=== PATIENT | female | born 1935 | race Caucasian/White ===

== ENCOUNTER 2025-01-15 14:29 | Emergency (ER) | payer MEDICARE, OTHER, SELFPAY ==
[2025-01-15] VITALS (10 sets, daily range): BP systolic 162–203; BP diastolic 71–100; PULSE 82–113; RESP 15–22; TEMP 36.6; O2SAT 95–100
--- NOTE | 2025-01-15 15:21 | DI.CT.S_ITS ---
PROCEDURE: CT ABDOMEN PELVIS WO CON INDICATIONS: right hip pain TECHNIQUE: CT of the abdomen and pelvis was obtained without intravenous contrast. Coronal and sagittal reformats were performed. For radiation dose reduction, the following was used: automated exposure control, adjustment of mA and/or kV according to patient size. COMPARISON: [place], [place], PET NECK TO MID THIGH, 04/22/2022, 11:06. FINDINGS: Image quality: Diagnostic. Lower Chest: No significant findings. ABDOMEN: Liver: No contour-deforming mass. Well-circumscribed hypodensities are seen scattered in liver parenchyma and measures fluid density unchanged from previous PET-CT scan and likely represent hepatic cysts. Gallbladder: No radiopaque gallstones or wall thickening. Biliary ducts: No biliary dilation. Pancreas: No ductal dilation. Spleen: Size is within normal limits. Adrenal Glands: No adrenal nodules. Kidneys and Ureters: No hydronephrosis. No contour-deforming mass. Stomach and Bowel: Normal colonic caliber, without significant wall thickening. No abscess collection. Huhg-[id number] fecal stasis in the colon is seen. Peritoneum: No abnormal intraperitoneal fluid. No free air. Ventral Wall: No significant hernia. Abdominal Nodes: No gross retroperitoneal or mesenteric adenopathy by size criteria. Vessels: Aorta and inferior vena cava are normal in size. PELVIS: Pelvic Organs: Unremarkable. Bladder: Unremarkable. Pelvic Nodes: No gross enlarged lymph nodes. Miscellaneous: No inguinal hernias are seen. Bones: No aggressive osseous abnormality. Osteoarthritic changes throughout bony pelvis. No evidence of avascular necrosis of femoral head. 6 mm anterolisthesis of L4 on L5 is seen. No acute vertebral body compression fracture. Spondylitic changes are noted throughout lower thoracic and lumbar spine. IMPRESSION: 1. No aggressive appearing bony lesions. No acute pelvic fracture or dislocation. No acute right hip fracture. 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 No evidence of avascular necrosis of femoral head. Grade 1 anterolisthesis of L4 on L5. Spondylitic changes throughout lower thoracic and lumbar spine. No acute vertebral body compression fracture. 2. No acute inflammatory process is seen in abdomen or pelvis. No gross abnormally enlarged lymph nodes are seen in abdomen or pelvis. Dictated by: Abdulkadir Rodney M.D. on 01/15/2025 at 16:10 Approved by: Abdulkadir Rodney M.D. on 01/15/2025 at 16:28
--- NOTE | 2025-01-15 15:21 | EKG_ITS ---
[address] [address] Test Date: 2025-01-15 Pat Name: Mali Jarquin Department: Room: Gender: Female Floor Coverer: KAITY : 1935 Requested By: Order Number: [id number] Reading MD: Deyvi George Measurements Intervals [place] Rate: 107 P: 69 DE: 144 QRS: -78 QRSD: 122 T: 9 QT: 362 QTc: 483 Interpretive Statements Sinus tachycardia Right bundle branch block Left anterior fascicular block Bifascicular block Minimal voltage criteria for LVH, may be normal variant ( R in aVL ) Septal infarct , age undetermined Possible Lateral infarct , age undetermined Electronically Signed On 01-24-2025 13:51:08 PDT by Deyvi George
[2025-01-15 15:49] LABS: Add Manual Diff / Slide Review NO; Hematocrit 41.8 % (36-46); Hemoglobin 14.2 g/dL (12.0-16.0); Lymphocytes Absolute Auto 700 /uL (1100-4500); Mean Corpuscular HGB Conc 34.1 % (30-36); Mean Corpuscular Hemoglobin 29.2 PG (26-34); Mean Corpuscular Volume 85.7 fL (80-100); Platelet Count 198 X10^3/uL (150-400)
[2025-01-15 16:00] LABS: Alanine Aminotransferase 27 IU/L (<35); Albumin 4.7 g/dL (3.5-5.0); Albumin Globulin Ratio 1.4 (1.0-2.8); Alkaline Phosphatase 71 U/L (38-126); Blood Urea Nitrogen 12 mg/dL (7-17); Calcium 9.7 mg/dL (8.4-10.2); Carbon Dioxide 30 mmol/L (22-32); Chloride 103 mmol/L (98-107); Estimated Glomerular Filt Rate > 60 mL/min (>60); Globulin 3.4 g/dL (1.7-4.1); Glucose 158 mg/dL (70-99); HEMOLYSIS < 15 (0-50); Potassium 4.0 mmol/L (3.4-5.1); Sodium 139 mmol/L (137-145); Total Protein 8.1 g/dL (6.3-8.2)
--- NOTE | 2025-01-15 18:17 | ED_ITS ---
HPI - Back Pain/Injury <Ottoniel Newell MD - Last Filed: 01/21/25 18:42> General Chief Complaint: Back Pain/Injury Stated Complaint: Right hip pain Time Seen by Provider: 01/15/25 17:48 History of Present Illness HPI Narrative: This is an 89-year-old female with a history of an abdominal sarcoma here with 1 month of right hip and right leg pain. Onset was atraumatic. Has not been having fevers or problems with bowel or bladder function. Has tried Tylenol or ibuprofen but is not taking either regularly. Does not have saddle anesthesia. Has had an urgent care visit and a couple of chiropractor visits related to this. Patient is concerned that this may be related to her sarcoma. She sees Oncology and is taking an oral chemotherapeutic. Related Data Previous Rx's ?Medication ?Instructions ?Recorded oxycodone-acetaminophen 5 mg-325 1 tab PO Q6H PRN pain #20 tabs 01/15/25 mg tablet (Percocet) Allergies Allergy/AdvReac Type Severity Reaction Status Date / Time No Known Drug Allergies Allergy Verified 01/15/25 14:59 Patient History <Ottoniel Newell MD - Last Filed: 01/21/25 18:42> Smoking Status: Never smoker Exam <Ottoniel Newell MD - Last Filed: 01/21/25 18:42> Initial Vital Signs Initial Vital Signs: Vital Signs Temperature 98 F 01/15/25 14:55 Pulse Rate 113 H 01/15/25 14:55 Respiratory Rate 17 01/15/25 14:55 Blood Pressure 191/85 H 01/15/25 14:55 Pulse Oximetry 98 01/15/25 14:55 Oxygen Delivery Method Room Air 01/15/25 14:55 vital signs are reviewed Const General: cooperative and No acute distress HENMT Head: normocephalic and atraumatic Face and sinus: face symmetric Mouth: moist mucous membranes Eyes Pupils: PERRL EOM: EOM intact bilaterally Neck Neck: normal visual inspection, supple and No JVD Chest Chest: normal inspection of the chest Resp Effort & Inspection: normal respiratory effort and able to speak in complete sentences Cardio Rate: regular rate Rhythm: regular rhythm Other: Normal heart rate GI Inspection: normal to inspection Palpation: soft Auscultation: normal bowel sounds Other: Bladder is not distended Other: Normal perineal sensation and sphincter tone. Stool is guaiac negative Back/Spine/Pelvis Back: normal to inspection Other: No tenderness or step-off in the spine Skin General: no rashes or lesions noted and warm Neuro General: patient alert, patient oriented x3 and moves all extremities Speech: speech normal Other: Decreased light touch sensation along the right lateral thigh. Motor is intact in the lower extremities, sensation is intact otherwise. Extrem General: full ROM (Tolerates passive range of motion of the right hip. Negative straight leg ) Psych Appearance: grossly normal <Primo Albarran DO - Last Filed: 01/15/25 22:39> Initial Vital Signs Initial Vital Signs: Vital Signs Temperature 98 F 01/15/25 14:55 Pulse Rate 113 H 01/15/25 14:55 Respiratory Rate 17 01/15/25 14:55 Blood Pressure 191/85 H 01/15/25 14:55 Pulse Oximetry 98 01/15/25 14:55 Oxygen Delivery Method Room Air 01/15/25 14:55 Course <Ottoniel Newell MD - Last Filed: 01/21/25 18:42> Orders Ordered: Discontinued Medications Ketorolac Tromethamine (Ketorolac 30 Mg/Ml Vial) 15 mg IM NOW ONE Stop: 01/15/25 18:30 Last Admin: 01/15/25 18:59 Dose: 15 mg Documented By: Lidocaine HCl (Lidocaine 2% Inj Mdv 20ml) 10 ml INJ INTRA-OP ONE Stop: 01/15/25 21:47 Last Admin: 01/15/25 21:57 Dose: 10 ml Documented By: LEN Oxycodone HCl (Oxycodone Ir 5 Mg Tablet) 5 mg PO NOW ONE Stop: 01/15/25 19:12 Last Admin: 01/15/25 19:17 Dose: 5 mg Documented By: Triamcinolone (Triamcinolone 40 Mg/Ml Vial) 20 mg INJ NOW ONE Stop: 01/15/25 21:47 Last Admin: 01/15/25 22:08 Dose: Not Given Documented By: LEN Triamcinolone (Triamcinolone 40 Mg/Ml Vial) 40 mg INJ NOW ONE Stop: 01/15/25 21:51 Last Admin: 01/15/25 21:58 Dose: 40 mg Documented By: LEN Reevaluation(s) Reevaluation #1: Nursing staff reported that the patient had greater than 400 cc on her bladder scan. She was subsequently able to void spontaneously. Unfortunately contaminated her urine with stool. Vital Signs Vital signs: Vital Signs - 8 hr 01/15/25 14:55 01/15/25 15:41 01/15/25 17:30 Temperature 98 F Pulse Rate 113 H 108 H 99 H Respiratory Rate 17 18 Blood Pressure 191/85 H 168/71 H Pulse Oximetry 98 95 97 Oxygen Delivery Method Room Air Room Air 01/15/25 17:30 01/15/25 18:00 01/15/25 18:30 Temperature Pulse Rate 95 H 82 95 H Respiratory Rate 22 Blood Pressure 196/89 H Pulse Oximetry 98 96 98 Oxygen Delivery Method Room Air 01/15/25 18:49 01/15/25 18:49 01/15/25 21:27 Temperature Pulse Rate 104 H 92 H Respiratory Rate 15 Blood Pressure 203/100 H 162/85 H Pulse Oximetry 100 96 Oxygen Delivery Method <Primo Albarran, DO - Last Filed: 01/15/25 22:39> Orders Ordered: Discontinued Medications Ketorolac Tromethamine (Ketorolac 30 Mg/Ml Vial) 15 mg IM NOW ONE Stop: 01/15/25 18:30 Last Admin: 01/15/25 18:59 Dose: 15 mg Documented By: Lidocaine HCl (Lidocaine 2% Inj Mdv 20ml) 10 ml INJ INTRA-OP ONE Stop: 01/15/25 21:47 Last Admin: 01/15/25 21:57 Dose: 10 ml Documented By: LEN Oxycodone HCl (Oxycodone Ir 5 Mg Tablet) 5 mg PO NOW ONE Stop: 01/15/25 19:12 Last Admin: 01/15/25 19:17 Dose: 5 mg Documented By: Triamcinolone (Triamcinolone 40 Mg/Ml Vial) 20 mg INJ NOW ONE Stop: 01/15/25 21:47 Last Admin: 01/15/25 22:08 Dose: Not Given Documented By: LEN Triamcinolone (Triamcinolone 40 Mg/Ml Vial) 40 mg INJ NOW ONE Stop: 01/15/25 21:51 Last Admin: 01/15/25 21:58 Dose: 40 mg Documented By: LEN Vital Signs Vital signs: Vital Signs - 8 hr 01/15/25 14:55 01/15/25 15:41 01/15/25 17:30 Temperature 98 F Pulse Rate 113 H 108 H 99 H Respiratory Rate 17 18 Blood Pressure 191/85 H 168/71 H Pulse Oximetry 98 95 97 Oxygen Delivery Method Room Air Room Air 01/15/25 17:30 01/15/25 18:00 01/15/25 18:30 Temperature Pulse Rate 95 H 82 95 H Respiratory Rate 22 Blood Pressure 196/89 H Pulse Oximetry 98 96 98 Oxygen Delivery Method Room Air 01/15/25 18:49 01/15/25 18:49 01/15/25 21:27 Temperature Pulse Rate 104 H 92 H Respiratory Rate 15 Blood Pressure 203/100 H 162/85 H Pulse Oximetry 100 96 Oxygen Delivery Method MDM - Back Pain/Injury <Ottoniel Newell MD - Last Filed: 01/21/25 18:42> Lab Data Lab results narrative: CBC with diff and CMP are unremarkable with the exception of an elevated glucose at 1:58 a.m. 01/15/25 15:30 01/15/25 15:30 Labs: Lab Results 01/15/25 Range/Units 15:30 WBC 4.1 L (4.5-11.0) X10^3/uL RBC 4.87 (4.0-5.2) X10^6/uL Hgb 14.2 (12.0-16.0) g/dL Hct 41.8 (36-46) % MCV 85.7 (80-100) fL MCH 29.2 (26-34) PG MCHC 34.1 (30-36) % RDW 15.7 H (11.6-14.8) % Plt Count 198 (150-400) X10^3/uL Neut % (Auto) 68.7 (50-75) % Lymph % (Auto) 16.9 L (25-40) % [place] % (Auto) 12.0 (3-14) % Eos % (Auto) 1.5 L (2-4) % Baso % (Auto) 0.9 (0-2) % Neut # (Auto) 2800 (4082-9133) /uL Lymph # (Auto) 700 L (9485-0858) /uL [place] # (Auto) 500 (0-900) /uL Eos # (Auto) 100 (0-450) /uL Baso # (Auto) 0 (0-100) /uL Sodium 139 (137-145) mmol/L Potassium 4.0 (3.4-5.1) mmol/L Chloride 103 (98-107) mmol/L Carbon Dioxide 30 (22-32) mmol/L BUN 12 (7-17) mg/dL Creatinine 0.68 (0.52-1.04) mg/dL Estimated GFR > 60 (>60) mL/min BUN/Creatinine Ratio 17.6 (6-22) Glucose 158 H (70-99) mg/dL Calcium 9.7 (8.4-10.2) mg/dL Total Bilirubin 0.7 (0.2-1.3) mg/dL AST 45 H (14-36) IU/L ALT 27 (<35) IU/L Alkaline Phosphatase 71 (38-126) U/L Total Protein 8.1 (6.3-8.2) g/dL Albumin 4.7 (3.5-5.0) g/dL Globulin 3.4 (1.7-4.1) g/dL Albumin/Globulin Ratio 1.4 (1.0-2.8) Imaging Data CT scan - abdomen/pelvis: Radiologist's Impression: [place] [address] CT Scan Report Signed Patient: Mali Jarquin MR#: [id number] : 1935 Acct:[id number] Age/Sex: 89 / F Date of Service: 01/15/25 Loc: ED Accession Number: [id number] Procedure: CT abdomen pelvis wo con Ordering Provider: Luis Daniel MD PROCEDURE: CT ABDOMEN PELVIS WO CON INDICATIONS: right hip pain TECHNIQUE: CT of the abdomen and pelvis was obtained without intravenous contrast. Coronal and sagittal reformats were performed. For radiation dose reduction, the following was used: automated exposure control, adjustment of mA and/or kV according to patient size. COMPARISON: [place], [place], PET NECK TO MID THIGH, 04/22/2022, 11:06. FINDINGS: Image quality: Diagnostic. Lower Chest: No significant findings. ABDOMEN: Liver: No contour-deforming mass. Well-circumscribed hypodensities are seen scattered in liver parenchyma and measures fluid density unchanged from previous PET-CT scan and likely represent hepatic cysts. Gallbladder: No radiopaque gallstones or wall thickening. Biliary ducts: No biliary dilation. Pancreas: No ductal dilation. Spleen: Size is within normal limits. Adrenal Glands: No adrenal nodules. Kidneys and Ureters: No hydronephrosis. No contour-deforming mass. Stomach and Bowel: Normal colonic caliber, without significant wall thickening. No abscess collection. Toaz-zk-qhsrunlv fecal stasis in the colon is seen. Peritoneum: No abnormal intraperitoneal fluid. No free air. Ventral Wall: No significant hernia. Abdominal Nodes: No gross retroperitoneal or mesenteric adenopathy by size criteria. Vessels: Aorta and inferior vena cava are normal in size. PELVIS: Pelvic Organs: Unremarkable. Bladder: Unremarkable. Pelvic Nodes: No gross enlarged lymph nodes. Miscellaneous: No inguinal hernias are seen. Bones: No aggressive osseous abnormality. Osteoarthritic changes throughout bony pelvis. No evidence of avascular necrosis of femoral head. 6 mm anterolisthesis of L4 on L5 is seen. No acute vertebral body compression fracture. Spondylitic changes are noted throughout lower thoracic and lumbar spine. IMPRESSION: 1. No aggressive appearing bony lesions. No acute pelvic fracture or dislocation. No acute right hip fracture. 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 No evidence of avascular necrosis of femoral head. Grade 1 anterolisthesis of L4 on L5. Spondylitic changes throughout lower thoracic and lumbar spine. No acute vertebral body compression fracture. 2. No acute inflammatory process is seen in abdomen or pelvis. No gross abnormally enlarged lymph nodes are seen in abdomen or pelvis. Dictated by: Abdulkadir Rodney M.D. on 01/15/2025 at 16:10 Approved by: Abdulkadir Rodney M.D. on 01/15/2025 at 16:28 ECG Data Interpretation: ECG shows sinus tachycardia at 107 there is right bundle-branch block and left anterior fascicle block. <Primo Albarran, DO - Last Filed: 01/15/25 22:39> Lab Data Labs: Lab Results 01/15/25 Range/Units 15:30 WBC 4.1 L (4.5-11.0) X10^3/uL RBC 4.87 (4.0-5.2) X10^6/uL Hgb 14.2 (12.0-16.0) g/dL Hct 41.8 (36-46) % MCV 85.7 (80-100) fL MCH 29.2 (26-34) PG MCHC 34.1 (30-36) % RDW 15.7 H (11.6-14.8) % Plt Count 198 (150-400) X10^3/uL Neut % (Auto) 68.7 (50-75) % Lymph % (Auto) 16.9 L (25-40) % [place] % (Auto) 12.0 (3-14) % Eos % (Auto) 1.5 L (2-4) % Baso % (Auto) 0.9 (0-2) % Neut # (Auto) 2800 (8841-3524) /uL Lymph # (Auto) 700 L (7090-4651) /uL [place] # (Auto) 500 (0-900) /uL Eos # (Auto) 100 (0-450) /uL Baso # (Auto) 0 (0-100) /uL Sodium 139 (137-145) mmol/L Potassium 4.0 (3.4-5.1) mmol/L Chloride 103 (98-107) mmol/L Carbon Dioxide 30 (22-32) mmol/L BUN 12 (7-17) mg/dL Creatinine 0.68 (0.52-1.04) mg/dL Estimated GFR > 60 (>60) mL/min BUN/Creatinine Ratio 17.6 (6-22) Glucose 158 H (70-99) mg/dL Calcium 9.7 (8.4-10.2) mg/dL Total Bilirubin 0.7 (0.2-1.3) mg/dL AST 45 H (14-36) IU/L ALT 27 (<35) IU/L Alkaline Phosphatase 71 (38-126) U/L Total Protein 8.1 (6.3-8.2) g/dL Albumin 4.7 (3.5-5.0) g/dL Globulin 3.4 (1.7-4.1) g/dL Albumin/Globulin Ratio 1.4 (1.0-2.8) Imaging Data Extremity x-ray #1: Radiologist's Impression: [address] [address] Magnetic Resonance Report Signed Patient: Mali Jarquin MR#: [id number] : 1935 Acct:[id number] Age/Sex: 89 / F Date of Service: 01/15/25 Loc: ED Accession Number: [id number] Procedure: MR lumbar spine wo con Ordering Provider: Ottoniel Newell MD PROCEDURE: MR LUMBAR SPINE WO CON INDICATIONS: suspect cauda equina TECHNIQUE: Noncontrast sagittal T1 spin echo and T2 fast echo, sagittal STIR, and T2 fast spin echo through the lumbar spine. In cases with scoliosis, additional coronal T2 fast spin echo may be performed. COMPARISON: None. FINDINGS: Image quality: Excellent. Alignment and Curvature: There is trace retrolisthesis L1 on L2, L2 on L3, L3 on L4 and trace anterolisthesis of L4 on L5 and L5 on S1. Bone Marrow: Marrow is of normal overall signal. No acute vertebral body compression fractures. Spinal Cord: Conus medullaris terminates at the L1 level. Visualized cord demonstrates normal signal and size. Paraspinous Soft Tissues: No paravertebral masses. T2 foci are present within the liver appearing consistent with simple cysts. Discs: Multilevel overall moderate disc desiccation most severe at L4-5. T12-L1: Mild disc bulge with superimposed posterior central protrusion. There is indentation of the anterior thecal sac as well as the anterior cord. No foraminal narrowing. L1-L2: Mild disc bulge with superimposed right posterior paracentral extrusion extending approximately 1.2 cm caudally. It is causing effacement of the right thecal sac as well as significant compromise of the right lateral recess. Moderate right and left foraminal narrowing with facet and ligamentum flavum hypertrophy. L2-L3: Mild disc bulge without spinal stenosis. Moderate left and mild right foraminal narrowing. There is severe narrowing with compromise the nerve root through the lateral recess secondary to extrusion. L3-L4: Mild disc bulge with mild spinal stenosis. Jlog-mh-heukgsna left and mild right foraminal narrowing with facet and ligamentum flavum hypertrophy L4-L5: Mild disc bulge with mild spinal stenosis. Moderate right and moderate to severe left foraminal narrowing. In addition, there is moderate narrowing through the left lateral recess. Facet and ligamentum flavum hypertrophy are present. L5-S1: Mild disc bulge without spinal stenosis. Cfgz-hc-vwsjmfwj right and moderate to severe left foraminal narrowing with slight effacement of the exiting L5 nerve roots. Facet and ligamentum flavum hypertrophy are present. IMPRESSION: Multilevel degenerative changes. Prominent extrusion extending caudally from L1-2 causing nerve root compromise as described above and effacement of the thecal sac. MDM Narrative Medical decision making narrative: All lab work, vital signs, nurse triage note, medication list, previous ER visits, and all imaging studies reviewed. Lumbar spine MRI shows multilevel degenerative changes. Prominent extrusion extending caudally from L1-L2 causing nerve root comprise compromise as described above and effacement of the thecal sac. Hip x-ray shows moderate bilateral hip degenerative changes. CT abdomen and pelvis shows no aggressive appearing bony lesions no acute pelvic fracture or dislocation. Bilateral hip joint osteoarthritic changes. No evidence of avascular necrosis of femoral head. Grade 1 anterolisthesis of L4 on L5. Spondylitic changes throughout lower thoracic and lumbar spine. No acute vertebral body compression fracture. No acute inflammatory process seen in the abdomen or pelvis. Differential diagnosis includes herniated disc spondylolisthesis, spondylosis, osteoarthritis, sciatica. Will have patient follow up with Neurosurgery at [facility]. DC home on Percocet rx. Discharge Plan Departure Patient Disposition: Home Clinical Impression: Lumbar nerve root compression Instructions: DI for Hip Pain Activity Restrictions/Additional Instructions: Return with new or worsening symptoms. Please follow up with Neurosurgery MD at [facility] call office for appointment tomorrow. Take medicine as directed for pain control. Prescriptions: New oxycodone-acetaminophen [Percocet] 5-325 mg tablet 1 tab PO Q6H PRN (Reason: pain) Qty: 20 0RF Referrals: Manisha Aguero PA-C [Primary Care Provider, Medical] Stand Alone Forms: Patient Portal/API
--- NOTE | 2025-01-15 18:29 | DI.RAD.S_ITS ---
PROCEDURE: XR HIP W PEL IF DONE RT 2V INDICATIONS: hip pain TECHNIQUE: AP pelvis with lateral view(s) of the right hip(s). COMPARISON: [facility], CT, CT ABDOMEN PELVIS WO CON, 01/15/2025, 15:32. FINDINGS: Bones: No fractures or dislocations. Pelvic ring appears intact. No suspicious bony lesions. There is moderate superior joint space narrowing seen of both hips, with associated remodeling changes with subchondral sclerosis and osteophyte formation. Age-appropriate lower lumbar spine degenerative changes are noted. The Soft tissues: The visualized bowel gas pattern is normal. No suspicious soft tissue calcifications. IMPRESSION: Moderate bilateral hip degenerative change can be seen by plain film. If it would be helpful for clinical management decision making, please consider a dedicated hip MRI for further evaluation (assuming that there is no contraindication). If there is strong clinical concern for a labral abnormality, this should be performed according to the arthrogram protocol. Dictated by: Andreas Ornelas M.D. on 01/15/2025 at 18:19 Approved by: Andreas Ornelas M.D. on 01/15/2025 at 18:20
[2025-01-15] MEDS: KETOROLAC 30 MG/ML VIAL 15 MG IM (18:59)
--- NOTE | 2025-01-15 19:11 | DI.MRI.S_ITS ---
PROCEDURE: MR LUMBAR SPINE WO CON INDICATIONS: suspect cauda equina TECHNIQUE: Noncontrast sagittal T1 spin echo and T2 fast echo, sagittal STIR, and T2 fast spin echo through the lumbar spine. In cases with scoliosis, additional coronal T2 fast spin echo may be performed. COMPARISON: None. FINDINGS: Image quality: Excellent. Alignment and Curvature: There is trace retrolisthesis L1 on L2, L2 on L3, L3 on L4 and trace anterolisthesis of L4 on L5 and L5 on S1. Bone Marrow: Marrow is of normal overall signal. No acute vertebral body compression fractures. Spinal Cord: Conus medullaris terminates at the L1 level. Visualized cord demonstrates normal signal and size. Paraspinous Soft Tissues: No paravertebral masses. T2 foci are present within the liver appearing consistent with simple cysts. Discs: Multilevel overall moderate disc desiccation most severe at L4-5. T12-L1: Mild disc bulge with superimposed posterior central protrusion. There is indentation of the anterior thecal sac as well as the anterior cord. No foraminal narrowing. L1-L2: Mild disc bulge with superimposed right posterior paracentral extrusion extending approximately 1.2 cm caudally. It is causing effacement of the right thecal sac as well as significant compromise of the right lateral recess. Moderate right and left foraminal narrowing with facet and ligamentum flavum hypertrophy. L2-L3: Mild disc bulge without spinal stenosis. Moderate left and mild right foraminal narrowing. There is severe narrowing with compromise the nerve root through the lateral recess secondary to extrusion. L3-L4: Mild disc bulge with mild spinal stenosis. Oumb-pt-swtoiwxk left and mild right foraminal narrowing with facet and ligamentum flavum hypertrophy L4-L5: Mild disc bulge with mild spinal stenosis. Moderate right and moderate to severe left foraminal narrowing. In addition, there is moderate narrowing through the left lateral recess. Facet and ligamentum flavum hypertrophy are present. L5-S1: Mild disc bulge without spinal stenosis. Spsu-zp-swxyicfp right and moderate to severe left foraminal narrowing with slight effacement of the exiting L5 nerve roots. Facet and ligamentum flavum hypertrophy are present. IMPRESSION: Multilevel degenerative changes. Prominent extrusion extending caudally from L1-2 causing nerve root compromise as described above and effacement of the thecal sac. Dictated by: Fernanda Robin M.D. on 01/15/2025 at 21:01 Approved by: Fernanda Robin M.D. on 01/15/2025 at 21:06
[2025-01-15] MEDS: OXYCODONE IR 5 MG TABLET PO (19:17)
[2025-01-15] MEDS: LIDOCAINE 2% INJ MDV 20ML 10 ML INJ (21:57)
[2025-01-15] MEDS: TRIAMCINOLONE 40 MG/ML VIAL INJ (21:58)
== END 2025-01-15 22:54 | disposition home or self-care (01) ==
PROVIDERS: Emergency Medicine; Emergency Provider Family Medicine; Family Provider Physician Assistant Medical; PCP Physician Assistant Medical
DX: M54.16 Radiculopathy, lumbar region (principal)
CPT/HCPCS: 36415; 72148; 73502; 74176; 80053; 85025; 93005; 96372; 99284; J1885